=== PATIENT | male | born 2000 | race Caucasian/White ===

== ENCOUNTER 2023-01-06 12:20 | Inpatient (IN) | payer MEDICAID, SELFPAY ==
[2023-01-06 12:48] VITALS: BMI 28.7
[2023-01-06] MEDS: nicotine 2 mg Gum BUCCAL ×2 (13:43→16:43)
[2023-01-06 14:00] VITALS: BP 120/90; PULSE 90; RESP 16; TEMP 36.6; O2SAT 100
[2023-01-06] MEDS: hyDROXYzine 25 mg Capsule 50 MG PO (16:45)
--- NOTE | 2023-01-06 18:43 | PC.NURSE ---
22 y/o male brought in for overdosing on Trazodone to sleep. Before today, he was in the hospital four weeks ago to have his medications adjusted. He has superficial lacerations on his arms. Pt stated that he has attempted suicide in the past by cutting and OD, but it's been over one year ago since his last attempt. He currently lives with his grandparents. He stated this is his sixth time being hospitalized in a psych facility. He is currently having auditory and visual hallucinations. He stated that he is seeing shadow people . He is also hearing voices and random sounds that he knows is not supposed to be there. He is currently having problems with his father that he seen recently and his father ignored him. He stated he is going to a 28 day program, through the state, after Thanksgiving. This is court ordered.
[2023-01-06] MEDS: OLANZapine 5 mg ODT PO (18:48)
[2023-01-06 19:43] VITALS: BP 160/77; PULSE 70; RESP 18; TEMP 37.3; O2SAT 98
[2023-01-06] MEDS: gabapentin 300 mg Capsule PO (20:15)
[2023-01-06] MEDS: prazosin 1 mg Capsule PO (20:15)
[2023-01-06] MEDS: lithium carbonate 300 mg Capsule PO (20:16)
[2023-01-06] MEDS: trazodone 50 mg Tablet PO (20:16)
[2023-01-07 06:00] VITALS: BP 124/79; PULSE 79; RESP 18; TEMP 36.6; O2SAT 95
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
[2023-01-07] MEDS: escitalopram 10 mg Tablet 20 MG PO (09:47)
[2023-01-07] MEDS: lithium carbonate 300 mg Capsule PO ×3 (09:47→20:15)
[2023-01-07] MEDS: nicotine 2 mg Gum BUCCAL ×2 (09:48→12:22)
[2023-01-07 13:21] VITALS: BP 123/76; PULSE 77; RESP 16; TEMP 36.8; O2SAT 99
[2023-01-07] MEDS: OLANZapine 5 mg ODT PO (14:07)
[2023-01-07] MEDS: lurasidone 20 mg Tablet 60 MG PO (17:47)
[2023-01-07 19:52] VITALS: BP 144/76; PULSE 68; RESP 18; TEMP 36.8; O2SAT 97
[2023-01-07] MEDS: trazodone 50 mg Tablet PO (20:15)
[2023-01-07] MEDS: prazosin 1 mg Capsule PO (20:15)
[2023-01-08 06:00] VITALS: BP 134/82; PULSE 76; RESP 17; TEMP 36.7; O2SAT 96
[2023-01-08] MEDS: lithium carbonate 300 mg Capsule PO ×3 (08:18→21:58)
[2023-01-08] MEDS: escitalopram 10 mg Tablet 20 MG PO (08:18)
[2023-01-08] MEDS: nicotine 2 mg Gum BUCCAL ×3 (08:23→16:11)
[2023-01-08] MEDS: haloperidol 5 mg Tablet PO (08:31)
[2023-01-08 14:00] VITALS: BP 127/80; PULSE 61; RESP 14; TEMP 36.8; O2SAT 98
[2023-01-08] MEDS: hyDROXYzine 25 mg Capsule 50 MG PO (16:05)
--- NOTE | 2023-01-08 16:08 | PC.NURSE ---
Patient anxious, rates anxiety 07/30. Administered Vistaril 50mg Po to patient. Patient states that the reason he is anxious is because he is here.
[2023-01-08] MEDS: lurasidone 20 mg Tablet 60 MG PO (17:16)
--- NOTE | 2023-01-08 18:28 | W.PM.NPUPNS ---
Subjective NPU Subjective: The patient is a 22-year-old white male with a history of rapidly cycling bipolar disorder with a rule out of schizoaffective disorder bipolar type along with PTSD and borderline personality traits. The patient had reported 6 previous inpatient hospitalizations in the last year. He had reported increased mood fluctuations and greater depression over the past 3 weeks with the initiation of 4 different medications at his last hospitalization. The patient had reported having nightmares and flashbacks. He had reported attending therapy in an outpatient basis to manage chronic thoughts of self injury. The patient had reported struggles with low motivation low energy and hypersomnia associated with his depression. Patient was given information about bipolar depression and the various medications used to treat it at this time. Mental Status Exam MSE Comments: This is a healthy white male, in hospital scrubs, with adequate grooming and eye contact. Significant tattooing on exposed skin with areas of healed cuts on forearm. No abnormal movements, except for mild psychomotor retardation. He was pleasant and cooperative with exam in mild distress. Speech was normal rate and volume. Mood described as depressed; affect was mood congruent. Thought process,was linear and organized. Thought content: patient denied any suicidal or homicidal ideation. He did not appear to be responding to internal stimuli. Attention, concentration, and memory appeared intact, but none were formally tested. Alert and oriented times three. Insight and judgment appear fair. Impulse control is limited. Vitals/I&O/Wt Last Vital Signs Temp 98.3 F 01/08/23 14:00 Pulse 61 01/08/23 14:00 Resp 14 01/08/23 14:00 BP 127/80 01/08/23 14:00 Pulse Ox 98 01/08/23 14:00 O2 Del Method Room Air 01/08/23 06:00 01/08/23 01/08/23 01/08/23 06:59 14:59 22:59 Intake Total 400 / 400 400 / 800 Balance 400 / 400 400 / 800 Weight last 48 hrs Weight 91.682 kg A&P Assessment and plan (1) Schizoaffective disorder: (2) PTSD (post-traumatic stress disorder): (3) EVELIO (generalized anxiety disorder): Plan This is a 22-year-old, white male, with a history of mental health issues and five previous psychiatric hospitalizations, with a recent hospitalization a few weeks ago, and initiation of several medications, who presents reporting some improvement in symptoms but still struggling, with a desire to make medication adjustments. 1. Get [place] level, patient has clear history of manic episodes and will increase latuda with plan to taper and discontinue lexapro due to potential for rapid cycling and increased induction of [place]. 2. Discontinue Gabapentin. 3. Encourage individual, group, and milieu therapy. 4. Continue q-15-minute checks for safety. 5. Recommend sober living treatment at the highest level of care to which the patient is willing to commit. Involuntary Hold Information 96 Hour Hold: 96 Hour Involuntary Admission: No Attestations NPU Medical Necessity Statement*: Inpatient hospitalization is medically necessary and the clinically appropriate intervention, at this time. We will monitor medications and make changes as indicated. The patient's likely length of stay is three to five days. Coding Level of Care Code Acute Code for [facility] Diagnoses Schizoaffective disorder F25.9 PTSD (post-traumatic stress disorder) F43.10 EVELIO (generalized anxiety disorder) F41.1
[2023-01-08 20:06] VITALS: BP 114/73; PULSE 76; RESP 16; TEMP 36.9; O2SAT 97
[2023-01-08] MEDS: prazosin 1 mg Capsule PO (21:58)
[2023-01-08] MEDS: trazodone 50 mg Tablet PO (21:59)
[2023-01-09 06:00] VITALS: BP 112/60; PULSE 61; RESP 16; O2SAT 95
[2023-01-09] MEDS: escitalopram 10 mg Tablet PO (09:50)
[2023-01-09] MEDS: lithium carbonate 300 mg Capsule PO ×3 (09:50→19:26)
[2023-01-09] MEDS: hyDROXYzine 25 mg Capsule 50 MG PO (12:15)
[2023-01-09 14:00] VITALS: BP 122/74; PULSE 70; RESP 16; TEMP 36.9; O2SAT 95
[2023-01-09] MEDS: lurasidone 20 mg Tablet 60 MG PO (17:18)
[2023-01-09] MEDS: lurasidone 80 mg Tablet PO (17:20)
--- NOTE | 2023-01-09 17:53 | W.PM.NPUPNS ---
Subjective NPU Subjective: The patient is a 22-year-old white male with a history of rapidly cycling bipolar disorder with a rule out of schizoaffective disorder bipolar type along with PTSD and borderline personality traits. Patient had reported improvement in his mood already with the reduction in Lexapro to 10 mg daily. The patient had reported that he continued to have some PTSD related episodes. He had reported having better stability in regards to manic symptoms with the lithium. He had reported that his mood was feeling better. He had not endorsed any thoughts of cutting himself. He had endorsed having less suicidal thoughts. He stated he wanted to continue with therapy. He had reported having brief periods of decreased need for sleep lasting a few days but stated that the Latuda had been helpful at reducing those episodes. Patient was compliant and was able to attend groups without any difficulties. Mental Status Exam MSE Comments: This is a healthy white male, in hospital scrubs, with adequate grooming and eye contact. Significant tattooing on exposed skin with areas of healed cuts on forearm. No abnormal involuntary motor movements, except for mild psychomotor retardation. He was pleasant and cooperative with exam in mild distress. Speech was normal rate rhythm and prosody. Mood described as better. His affect was mood congruent and brighter today. Thought process,was linear and organized. Thought content: patient denied any suicidal or homicidal ideation. He did not appear to be responding to internal stimuli. Attention, concentration, and memory appeared intact, but none were formally tested. Alert and oriented times three. Insight and judgment appear fair. Impulse control is limited. Vitals/I&O/Wt Last Vital Signs Temp 98.4 F 01/09/23 14:00 Pulse 70 01/09/23 14:00 Resp 16 01/09/23 14:00 BP 122/74 01/09/23 14:00 Pulse Ox 95 01/09/23 14:00 O2 Del Method Room Air 01/09/23 14:00 Weight last 48 hrs Weight 91.682 kg A&P Assessment and plan (1) Schizoaffective disorder: (2) PTSD (post-traumatic stress disorder): (3) EVELIO (generalized anxiety disorder): Plan This is a 22-year-old, white male, with a history of mental health issues and five previous psychiatric hospitalizations, with a recent hospitalization a few weeks ago, and initiation of several medications, who presents reporting some improvement in symptoms but still struggling, with a desire to make medication adjustments. 1. Get [place] level on 01/11/23, patient has clear history of manic episodes and will increase latuda to 80mg at night with discontinuation of lexapro after tommorow. Consider Lamictal for bipolar depression. 2. Discontinue Gabapentin. 3. Encourage individual, group, and milieu therapy. 4. Continue q-15-minute checks for safety. 5. Recommend sober living treatment at the highest level of care to which the patient is willing to commit. Involuntary Hold Information 96 Hour Hold: 96 Hour Involuntary Admission: No Attestations NPU Medical Necessity Statement*: Inpatient hospitalization is medically necessary and the clinically appropriate intervention, at this time. We will monitor medications and make changes as indicated. The patient's likely length of stay is three to five days. Coding Level of Care Code Acute Code for g Fwd Diagnoses Schizoaffective disorder F25.9 PTSD (post-traumatic stress disorder) F43.10 EVELIO (generalized anxiety disorder) F41.1
[2023-01-09] MEDS: prazosin 1 mg Capsule 2 MG PO (19:25)
[2023-01-09] MEDS: trazodone 50 mg Tablet PO (19:26)
[2023-01-09 20:07] VITALS: BP 128/75; PULSE 94; RESP 18; TEMP 36.8; O2SAT 96
[2023-01-10 06:00] VITALS: BP 122/74; PULSE 59; RESP 18; TEMP 36.4; O2SAT 97
[2023-01-10] MEDS: nicotine 2 mg Gum BUCCAL ×2 (09:06→11:50)
[2023-01-10] MEDS: lithium carbonate 300 mg Capsule PO (09:06)
[2023-01-10] MEDS: escitalopram 10 mg Tablet PO (09:06)
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
[2023-01-10 12:28] VITALS: BP 122/74; PULSE 59; RESP 18; TEMP 36.4; O2SAT 97
== END 2023-01-10 13:45 | disposition home or self-care (01) | DRG 885 ==
PROVIDERS: Admitting Provider Psychiatry & Neurology Psychiatry; Visit Provider Psychiatry & Neurology Psychiatry
DX: F25.9 Schizoaffective disorder, unspecified (principal); F12.90 Cannabis use, unspecified, uncomplicated; F43.10 Post-traumatic stress disorder, unspecified; F41.1 Generalized anxiety disorder; F17.210 Nicotine dependence, cigarettes, uncomplicated; F17.290 Nicotine dependence, other tobacco product, uncomplicated; Z81.8 Family history of other mental and behavioral disorders
CPT/HCPCS: 97150; 97165